=== PATIENT | female | born 1960 | race Caucasian/White ===

== ENCOUNTER 2017-01-02 19:05 | Observation (INO) | payer OTHER ==
[~2017-01-02] VITALS: Ht 177.8 cm; Wt 59.7 kg
[~2017-01-02 19:05] MED LIST: BETAM.05%T TOP; ENBR25IN3 SQ/IV; HYDR-3133 PO; LEVE500 PO; Z.0.WALKERFRONT
[2017-01-02 19:10] VITALS: BP 103/81; PULSE 115; RESP 18; TEMP 97.5; O2SAT 100
[2017-01-02 19:20] VITALS: BP 97/62; PULSE 73; RESP 18; O2SAT 99
--- NOTE | 2017-01-02 19:34 | PD ---
HPI Chief Complaint: Dizziness Time Seen by Provider: 19:26 Travel History International Travel<30 days: No Contact w/Intl Traveler<30days: No Traveled to known affect area: No History of Present Illness HPI 56-year-old female with history of RA, alcoholism, here for evaluation of possible dehydration. The patient states that for the last 2 days she has had little to eat or drink, and has had a few episodes of vomiting. She states that today she felt very weak and nearly passed out after becoming extremely dizzy. Currently the patient complains of weakness. No dizziness. She denies chest pain or dyspnea. No fevers or chills. No abdominal pain. States that she has not had an alcoholic beverage since yesterday, and usually drinks rum and Coke throughout the day. She denies illicit drug use. PFSH Past Medical History Arthritis: Yes (RHEUMATOID) Asthma: No Autoimmune Disease: Yes (RA) Blood Disorders: No Anxiety: No Depression: Yes Heart Rhythm Problems: No Cancer: No Cardiovascular Problems: Yes (htn not on meds) High Cholesterol: Yes Chemotherapy: No Chest Pain: No Congestive Heart Failure: No COPD: No Cerebrovascular Accident: No Diabetes: No Diminished Hearing: No Endocrine: No Gastrointestinal Disorders: No GERD: No Genitourinary: No Headaches: No Hiatal Hernia: No Hypertension: Yes Immune Disorder: No Implanted Vascular Access Dvce: No Kidney Stones: No Musculoskeletal: Yes (reumatoid arthritis) Neurologic: Yes Psychiatric: No Reproductive: No Respiratory: No Integumentary: Yes (CHRONIC PSORIASIS) Immunizations Current: Yes Migraines: No Radiation Therapy: No Renal Failure: No Seizures: No Sickle Cell Disease: No Sleep Apnea: No Thyroid Disease: No Ulcer: No ?: Not Menopausal: Yes Past Surgical History Abdominal Surgery: No AICD: No Arteriovenous Shunt: No Cardiac Surgery: No Genitourinary Surgery: No Gynecologic Surgery: No Insulin Pump: No Joint Replacement: No Neurologic Surgery: No Oral Surgery: No Pacemaker: No Thoracic Surgery: No Other Surgery: No Social History Alcohol Use: Yes (DAILY) Tobacco Use: Yes (1/2 PPD) Substance Use: No Allergies-Medications (Allergen,Severity, Reaction): Coded Allergies: No Known Allergies (Unverified , 01/02/17) Reported Meds & Prescriptions Reported Meds & Active Scripts Active Reported Folic Acid 400 Mcg Tab 400 Mcg PO DAILY Vitamin D (Cholecalciferol) 1,000 Unit Tab 1,000 Units PO DAILY Keppra (Levetiracetam) 500 Mg Tab 500 Mg PO BID Methotrexate 2.5 Mg Tab 5 Mg PO Q7D Review of Systems Except as stated in HPI: all other systems reviewed are Neg Physical Exam Narrative GENERAL: Well-developed, under nourished, underweight, awake, alert, no acute distress. SKIN: Focused skin assessment warm/dry. HEAD: Atraumatic. Normocephalic. EYES: Pupils equal and round. No scleral icterus. No injection or drainage. ENT: No nasal bleeding or discharge. Mucous membranes pink and dry. NECK: Trachea midline. No JVD. CARDIOVASCULAR: Tachycardic, regular. RESPIRATORY: No accessory muscle use. Clear to auscultation. Breath sounds equal bilaterally. GASTROINTESTINAL: Abdomen soft, non-tender, nondistended. MUSCULOSKELETAL: No obvious deformities. No clubbing. No cyanosis. No edema. NEUROLOGICAL: Awake and alert. No obvious cranial nerve deficits. Motor grossly within normal limits. Normal speech. PSYCHIATRIC: Appropriate mood and affect; insight and judgment normal. Data Data Last Documented VS Vital Signs Date Time Temp Pulse Resp B/P Pulse Ox O2 Delivery O2 Flow Rate FiO2 01/02/17 20:30 79 17 116/80 99 Room Air 01/02/17 19:10 97.5 Orders Complete Blood Count With Diff (01/02/17 19:31) Comprehensive Metabolic Panel (01/02/17 19:31) Lipase (01/02/17 19:31) Lactic Acid (01/02/17 19:31) Prothrombin Time / Inr (Pt) (01/02/17 19:31) Act Partial Throm Time (Ptt) (01/02/17 19:31) Urinalysis - C+S If Indicated (01/02/17 19:31) Iv Access Insert/Monitor (01/02/17 19:31) Ecg Monitoring (01/02/17 19:31) Oximetry (01/02/17 19:31) Sodium Chlor 0.9% 1000 Ml Inj (Ns 1000 M (01/02/17 19:31) Sodium Chloride 0.9% Flush (Ns Flush) (01/02/17 19:45) Electrocardiogram (01/02/17 19:31) Sodium Chlor 0.9% 1000 Ml Inj (Ns 1000 M (01/02/17 19:45) Alcohol (Ethanol) (01/02/17 19:31) Ckmb (Isoenzyme) Profile (01/02/17 19:31) Troponin I (01/02/17 19:31) Beta Hydroxybutyrate (Acetone) (01/02/17 19:40) Potassium Chlor 20 Meq Premix (Kcl 20 Me (01/02/17 21:30) Dext 5%-Nacl 0.45% 1000 Ml Inj (D5w-1/2 (01/02/17 21:45) Labs Laboratory Tests Test 01/02/17 19:40 White Blood Count 6.1 TH/MM3 Red Blood Count 3.54 MIL/MM3 Hemoglobin 12.2 GM/DL Hematocrit 37.2 % Mean Corpuscular Volume 105.3 FL Mean Corpuscular Hemoglobin 34.4 PG Mean Corpuscular Hemoglobin 32.7 % Concent Red Cell Distribution Width 15.0 % Platelet Count 164 TH/MM3 Mean Platelet Volume 9.4 FL Neutrophils (%) (Auto) 76.8 % Lymphocytes (%) (Auto) 15.8 % Monocytes (%) (Auto) 6.1 % Eosinophils (%) (Auto) 0.7 % Basophils (%) (Auto) 0.6 % Neutrophils # (Auto) 4.7 TH/MM3 Lymphocytes # (Auto) 1.0 TH/MM3 Monocytes # (Auto) 0.4 TH/MM3 Eosinophils # (Auto) 0.0 TH/MM3 Basophils # (Auto) 0.0 TH/MM3 CBC Comment AUTO DIFF Differential Comment AUTO DIFF CONFIRMED Platelet Estimate NORMAL Platelet Morphology Comment NORMAL Red Cell Morphology Comment NORMAL Prothrombin Time 10.9 SEC Prothromb Time International 1.0 RATIO Ratio Activated Partial 21.9 SEC Thromboplast Time Sodium Level 133 MEQ/L Potassium Level 2.7 MEQ/L Chloride Level 96 MEQ/L Carbon Dioxide Level 16.6 MEQ/L Anion Gap 20 MEQ/L Blood Urea Nitrogen 12 MG/DL Creatinine 1.20 MG/DL Estimat Glomerular Filtration 46 ML/MIN Rate Random Glucose 146 MG/DL Lactic Acid Level 3.2 mmol/L Calcium Level 9.1 MG/DL Total Bilirubin 2.1 MG/DL Aspartate Amino Transf 147 U/L (AST/SGOT) Alanine Aminotransferase 42 U/L (ALT/SGPT) Alkaline Phosphatase 140 U/L Total Creatine Kinase 27 U/L Troponin I LESS THAN 0.02 NG/ML Total Protein 8.9 GM/DL Albumin 3.4 GM/DL Lipase 208 U/L Ethyl Alcohol Level LESS THAN 3 MG/DL B-Hydroxybutyrate 4.34 MMOL/L [facility] Medical Decision Making Medical Screen Exam Complete: Yes Emergency Medical Condition: Yes Interpretation(s) EKG: Sinus, rate 93, normal axis, incomplete RBBB, nonspecific anterior/lateral ST/T changes, unchanged from prior. Differential Diagnosis Dehydration, metabolic abnormality, AKA, DKA, alcohol withdrawal. Narrative Course Initial vital signs show heart rate 1:15, blood pressure 103/81, pulse ox 100% on room air, oral temp 97.5F. CBC shows WBC 6.1, hemoglobin 12.2, hematocrit 37.2, platelets 164, MCV 105.3. CMP is remarkable for sodium 133, potassium 2.7, chloride 96, bicarbonate 16.6, anion gap 20, creatinine 1.2, GFR 46, T bili 2.1, AST 147, ALT 42, alkaline phosphatase 140. Lipase is 208. Lactic acid is 3.2. Beta hydroxybutyrate is 4.34 Potassium replaced peripherally. Heart rate improved to the 80s after 2 L of normal saline IV. Patient has an anion gap metabolic acidosis. This is likely alcoholic ketoacidosis. She does have a slight lactic acidosis. After 2 L of normal saline were given, the patient was started on D5 1/2 NS at 100 cc per hour. She will be admitted for further treatment and evaluation. Case discussed with [facility] hospitalist Dr Loving who will admit the patient to his service. Diagnosis Primary Impression: Metabolic acidosis Additional Impressions: Alcoholic ketoacidosis Dehydration Hypokalemia Admitting Information Admitting Physician Requests: Observation Richard Peterson MD January 02, 2017 19:34
[2017-01-02] MEDS ORDERED: SODIUM CHLORIDE 0.9% FLUSH 10 ML FLUSH IV FLUSH PRN ×2 (19:45→22:15)
[2017-01-02] MEDS ORDERED: SODIUM CHLOR 0.9% 1000 ML INJ 1,000 ML IV ONE (19:45)
[2017-01-02] MEDS ORDERED: FOLI400T PO (19:47)
[2017-01-02] MEDS ORDERED: LEVE500 PO (19:47)
[2017-01-02] MEDS ORDERED: VITA100064 PO (19:47)
[2017-01-02] MEDS ORDERED: METH2.5T PO (19:47)
[2017-01-02 19:55] LABS: AUTOMATED NEUTROPHIL # 4.7 TH/MM3 (1.8-7.7); BASOPHIL % 0.6 % (0.0-2.0); EOSINOPHIL % 0.7 % (0.0-4.0); HEMATOCRIT 37.2 % (35.0-46.0); LYMPH % 15.8 % (9.0-44.0); MEAN CELL VOLUME 105.3 FL (80.0-100.0); MEAN CORPUSCULAR HEMOGLOBIN 34.4 PG (27.0-34.0); MEAN CORPUSCULAR HGB CONC 32.7 % (32.0-36.0); MONO % 6.1 % (0.0-8.0); NEUT % 76.8 % (16.0-70.0); PLATELET COUNT 164 TH/MM3 (150-450); RED BLOOD COUNT 3.54 MIL/MM3 (4.00-5.30); WHITE BLOOD COUNT 6.1 TH/MM3 (4.0-11.0)
[2017-01-02 19:56] LABS: HEMO FLAGS AUTO DIFF
[2017-01-02] MEDS: SODIUM CHLOR 0.9% 1000 ML INJ 1,000 ML IV SCH ×2 (19:59→20:03)
[2017-01-02 20:11] LABS: APTT (PATIENT) 21.9 SEC (24.3-30.1); PROTHROMBIN TIME - PATIENT 10.9 SEC (9.8-11.6)
[2017-01-02 20:30] VITALS: BP 116/80; PULSE 79; RESP 17; O2SAT 99
[2017-01-02 21:03] LABS: ALKALINE PHOSPHATASE 140 U/L (45-117); ALT (GPT) 42 U/L (10-53); ANION GAP 20 MEQ/L (5-15); AST (GOT) 147 U/L (15-37); BICARBONATE 16.6 MEQ/L (21.0-32.0); BLOOD UREA NITROGEN 12 MG/DL (7-18); CHLORIDE 96 MEQ/L (98-107); GLOMERULAR FILTRATION RATE 46 ML/MIN (>89); SODIUM (NA) 133 MEQ/L (136-145); TOTAL BILIRUBIN ADULT 2.1 MG/DL (0.2-1.0)
[2017-01-02 21:04] LABS: CREATINE KINASE 27 U/L (26-192)
[2017-01-02 21:06] LABS: PLATELET ESTIMATE SMEAR NORMAL (NORMAL); PLATELET MORPHOLOGY NORMAL (NORMAL); SCAN/DIFF AUTO DIFF CONFIRMED
[2017-01-02 21:07] LABS: POTASSIUM 2.7 MEQ/L (3.5-5.1)
[2017-01-02 21:28] LABS: BETA-HYDROXYBUTYRATE 4.34 MMOL/L (0.00-0.39)
[2017-01-02 21:30] VITALS: BP 110/70; PULSE 80; RESP 17; O2SAT 97
[2017-01-02] MEDS ORDERED: DEXT 5%-NACL 0.45% 1000 ML INJ 1,000 ML IV SCH (21:45)
[2017-01-02] MEDS: POTASSIUM CHLOR 20 MEQ PREMIX 100 ML IV SCH (21:55)
--- NOTE | 2017-01-02 22:11 | HHI.HP ---
HPI Service [facility] Hospitalists Primary Care Physician Jens Vides MD Admission Diagnosis metabolic acidosis, alcoholic ketoacidosis, hypokalemia, dehydration Chief Complaint: dizziness weak not eating or drinking 2 days Travel History International Travel<30 Days: No Contact w/Intl Traveler <30 Da: No Traveled to Known Affected Are: No History of Present Illness 56 y/o white female with hx drinking rum and coke daily who has history of seizure disorder on keppra . Patient was doing well ate on monday donut which upset her stomach and took tums with no improvement and had nausea and vomit and did not eat or drink anything since monday ,also was feeling lightheaded and came [facility] was given IV fluid which did help her blood pressure which initially was low ,Lab work showed hypokalemia and acidosis and will be admitted for hydration and recheck labs in am. Patient has an anion gap metabolic acidosis. This is likely alcoholic ketoacidosis. She does have a slight lactic acidosis. After 2 L of normal saline were given, the patient was started on D5 1/2 NS at 100 cc per hour. She will be admitted for further treatment and evaluation. Review of Systems Constitutional: COMPLAINS OF: Dizziness, Change in appetite Gastrointestinal: COMPLAINS OF: Nausea, Vomiting Past Family Social History Past Medical History rheumatoid arthritis on methotrexate q week,seizure disorder Past Surgical History none Reported Medications keppra 500 bid,vit d,folic acid methotrexate Allergies: Coded Allergies: No Known Allergies (Unverified , 01/02/17) Social History drinks daily none since monday smokes has cut down to 1/2 ppd Physical Exam Vital Signs Vital Signs Date Time Temp Pulse Resp B/P Pulse Ox O2 Delivery O2 Flow Rate FiO2 01/02/17 20:30 79 17 116/80 99 Room Air 01/02/17 19:20 73 18 97/62 99 Room Air 01/02/17 19:10 97.5 115 18 103/81 100 Physical Exam GENERAL: This is a well-nourished, well-developed patient, in no apparent distress. SKIN: No rashes, ecchymoses or lesions. Cool and dry. HEAD: Atraumatic. Normocephalic. No temporal or scalp tenderness. EYES: Pupils equal round and reactive. Extraocular motions intact. No scleral icterus. No injection or drainage. ENT: Nose without bleeding, purulent drainage or septal hematoma. Throat without erythema, tonsillar hypertrophy or exudate. Uvula midline. Airway patent. NECK: Trachea midline. No JVD or lymphadenopathy. Supple, nontender, no meningeal signs. CARDIOVASCULAR: Regular rate and rhythm without murmurs, gallops, or rubs. RESPIRATORY: Clear to auscultation. Breath sounds equal bilaterally. No wheezes , rales, or rhonchi. GASTROINTESTINAL: Abdomen soft, non-tender, nondistended. No hepato-splenomegaly , or palpable masses. No guarding. MUSCULOSKELETAL: Extremities without clubbing, cyanosis, or edema. No joint tenderness, effusion, or edema noted. No calf tenderness. Negative Homans sign bilaterally. NEUROLOGICAL: Awake and alert. Cranial nerves II through XII intact. Motor and sensory grossly within normal limits. Five out of 5 muscle strength in all muscle groups. Normal speech. Laboratory Laboratory Tests Test 01/02/17 19:40 White Blood Count 6.1 Red Blood Count 3.54 Hemoglobin 12.2 Hematocrit 37.2 Mean Corpuscular Volume 105.3 Mean Corpuscular Hemoglobin 34.4 Mean Corpuscular Hemoglobin 32.7 Concent Red Cell Distribution Width 15.0 Platelet Count 164 Mean Platelet Volume 9.4 Neutrophils (%) (Auto) 76.8 Lymphocytes (%) (Auto) 15.8 Monocytes (%) (Auto) 6.1 Eosinophils (%) (Auto) 0.7 Basophils (%) (Auto) 0.6 Neutrophils # (Auto) 4.7 Lymphocytes # (Auto) 1.0 Monocytes # (Auto) 0.4 Eosinophils # (Auto) 0.0 Basophils # (Auto) 0.0 CBC Comment AUTO DIFF Differential Comment AUTO DIFF CONFIRMED Platelet Estimate NORMAL Platelet Morphology Comment NORMAL Red Cell Morphology Comment NORMAL Prothrombin Time 10.9 Prothromb Time International 1.0 Ratio Activated Partial 21.9 Thromboplast Time Sodium Level 133 Potassium Level 2.7 Chloride Level 96 Carbon Dioxide Level 16.6 Anion Gap 20 Blood Urea Nitrogen 12 Creatinine 1.20 Estimat Glomerular Filtration 46 Rate Random Glucose 146 Lactic Acid Level 3.2 Calcium Level 9.1 Total Bilirubin 2.1 Aspartate Amino Transf 147 (AST/SGOT) Alanine Aminotransferase 42 (ALT/SGPT) Alkaline Phosphatase 140 Total Creatine Kinase 27 Troponin I LESS THAN 0.02 Total Protein 8.9 Albumin 3.4 Lipase 208 Ethyl Alcohol Level LESS THAN 3 B-Hydroxybutyrate 4.34 Result Diagram: 01/02/17193901/02/171939 Course in er started on IV fluid Assessment and Plan Problem List: (1) Metabolic acidosis Status: Acute Plan: will continue IV fluid recheck labs (2) Alcoholic ketoacidosis Status: Acute Plan: as above no signs of withdrawal (3) Hypokalemia Status: Acute Plan: will give potassium and follow up labs (4) Dehydration Status: Acute Plan: IV fluid Assessment and Plan further plan pending repeat labs,patient lft was a little high will recheck and get abdominal ultrasound Code Status full Discussed Condition With patient Froilan Avery MD January 02, 2017 22:10
[2017-01-02] MEDS ORDERED: PANTOPRAZOLE SODIUM 40 MG VIAL IV PUSH ONE (22:15)
[2017-01-02] MEDS ORDERED: NALOXONE HCL 0.4 MG/ML AMP IV PRN (22:15)
[2017-01-02] MEDS ORDERED: ONDANSETRON HCL 4 MG/2 ML VIAL IVP PRN (22:15)
[2017-01-02 22:30] VITALS: BP 130/90; PULSE 93; RESP 16; O2SAT 97
[2017-01-02 23:30] VITALS: BP 118/83; PULSE 82; RESP 18; O2SAT 97
[2017-01-02 23:56] LABS: BLOOD, URINE LARGE (NEG); GLUCOSE,URINE NEG (NEG); KETONE, URINE NEG (NEG); NITRITE,URINE NEG (NEG)
[2017-01-03] VITALS: BP 121/85; PULSE 78; RESP 18; TEMP 97.1; O2SAT 100
[2017-01-03 00:11] LABS: BACTERIA, URINE MANY /hpf; SQUAMOUS EPITHELIAL CELL URINE 0-5 /hpf (0-5); URINE COLOR AMBER (YELLW/STRAW); WBC, URINE INNUM /hpf (0-5)
[2017-01-03 00:12] LABS: COMMENT (UR) CULTURE INDICATED; CULTURE IF INDICATED CULTURE INDICATED
[2017-01-03 00:45] VITALS: PULSE 89
[2017-01-03] MEDS: POTASSIUM CHLOR 20 MEQ PREMIX 100 ML IV SCH (02:24)
[2017-01-03 04:00] VITALS: BP 123/84; PULSE 76; RESP 18; TEMP 98; O2SAT 100
[2017-01-03] MEDS: SODIUM CHLOR 0.45% 1000 ML INJ 1,000 ML IV SCH ×2 (04:34→08:55)
[2017-01-03 05:49] LABS: AUTOMATED NEUTROPHIL # 2.8 TH/MM3 (1.8-7.7); BASOPHIL % 0.4 % (0.0-2.0); EOSINOPHIL % 0.7 % (0.0-4.0); HEMATOCRIT 28.7 % (35.0-46.0); HEMO FLAGS DIFF FINAL; LYMPH % 23.9 % (9.0-44.0); LYMPHOCYTE # 1.1 TH/MM3 (1.0-4.8); MEAN CELL VOLUME 105.3 FL (80.0-100.0); MEAN CORPUSCULAR HEMOGLOBIN 35.9 PG (27.0-34.0); MEAN CORPUSCULAR HGB CONC 34.1 % (32.0-36.0); MONO % 11.5 % (0.0-8.0); NEUT % 63.5 % (16.0-70.0); PLATELET COUNT 113 TH/MM3 (150-450); RED BLOOD COUNT 2.73 MIL/MM3 (4.00-5.30); RED CELL DISTRIBUTION WIDTH 15.1 % (11.6-17.2); WHITE BLOOD COUNT 4.4 TH/MM3 (4.0-11.0)
[2017-01-03 06:11] LABS: ALKALINE PHOSPHATASE 97 U/L (45-117); ALT (GPT) 27 U/L (10-53); ANION GAP 14 MEQ/L (5-15); AST (GOT) 78 U/L (15-37); BETA-HYDROXYBUTYRATE 1.82 MMOL/L (0.00-0.39); BICARBONATE 20.1 MEQ/L (21.0-32.0); BLOOD UREA NITROGEN 9 MG/DL (7-18); CHLORIDE 103 MEQ/L (98-107); GLOMERULAR FILTRATION RATE 74 ML/MIN (>89); POTASSIUM 3.6 MEQ/L (3.5-5.1); SODIUM (NA) 137 MEQ/L (136-145); TOTAL BILIRUBIN ADULT 1.5 MG/DL (0.2-1.0)
[2017-01-03 08:31] VITALS: BP 112/78; PULSE 71; RESP 18; TEMP 97.5; O2SAT 100
[2017-01-03] MEDS ORDERED: levETIRAcetam 500 MG TAB PO SCH (09:00)
[2017-01-03] MEDS ORDERED: CHOLECALCIFEROL (VIT D3) 1000 UNIT TAB PO SCH (09:00)
[2017-01-03] MEDS ORDERED: SODIUM CHLORIDE 0.9% FLUSH 10 ML FLUSH IV FLUSH SCH (09:00)
[2017-01-03] MEDS ORDERED: FOLIC ACID 1 MG TAB PO SCH ×2 (09:00)
--- NOTE | 2017-01-03 09:14 | RADHPO ---
EXAM DATE/TIME: 01/03/2017 08:15 [place] COMPARISON: No previous studies available for comparison. INDICATIONS : Increased lab values. MEDICAL HISTORY : Hypertension. Rheumatoid arthritis. Hypercholesterolemia. ETOH. SURGICAL HISTORY : None. ENCOUNTER: Initial ACUITY: 1 day PAIN SCORE: 4/10 LOCATION: Bilateral upper quadrant MEASUREMENTS: LIVER: 12.9 cm length COMMON DUCT: 4 mm RIGHT KIDNEY: 11.2 x 5.2 x 5.6 cm SPLEEN: 8.0 cm length FINDINGS: LIVER: Normal echotexture without focal lesion or ductal dilatation. COMMON DUCT: No intraluminal mass or stone visualized. GALLBLADDER: Contains no stones, demonstrates no wall thickening or pericholecystic fluid. PANCREAS: The visualized portions are within normal limits. RIGHT KIDNEY: No hydronephrosis, stone or mass. SPLEEN: No focal lesion. CONCLUSION: Normal examination. Carlos A Lyons MD on January 03, 2017 at 9:08 Board Certified Radiologist. This report was verified electronically.
[2017-01-03] MEDS ORDERED: THIAMINE HCL 100 MG TAB PO ONE (10:30)
[2017-01-03] MEDS ORDERED: POTASSIUM CHLORIDE 8 MEQ CONTROLLED RELEASE TAB PO ONE (10:30)
--- NOTE | 2017-01-03 10:31 | HHI.PR ---
Subjective Remarks Patient feeling better labs are normalizing except has anemia and did have nausea and vomit and does have alcohol use will ask GI to see ,also [place] service counselor regarding alcohol Objective Vitals GENERAL: SKIN: Warm and dry. HEAD: Atraumatic. Normocephalic. EYES: Pupils equal and round. No scleral icterus. No injection or drainage. ENT: No nasal bleeding or discharge. Mucous membranes pink and moist. NECK: Trachea midline. No JVD. CARDIOVASCULAR: Regular rate and rhythm. RESPIRATORY: No accessory muscle use. Clear to auscultation. Breath sounds equal bilaterally. GASTROINTESTINAL: Abdomen soft, non-tender, nondistended. Hepatic and splenic margins not palpable. MUSCULOSKELETAL: Extremities without clubbing, cyanosis, or edema. No obvious deformities. NEUROLOGICAL: Awake and alert. No obvious cranial nerve deficits. Motor grossly within normal limits. Five out of 5 muscle strength in the arms and legs. Normal speech. PSYCHIATRIC: Appropriate mood and affect; insight and judgment normal. Vital Signs Date Time Temp Pulse Resp B/P Pulse Ox O2 Delivery O2 Flow Rate FiO2 01/03/17 08:31 97.5 71 18 112/78 100 01/03/17 04:00 98.0 76 18 123/84 100 01/03/17 00:45 89 01/03/17 00:00 97.1 78 18 121/85 100 01/02/17 23:30 82 18 118/83 97 Room Air 01/02/17 22:30 93 16 130/90 97 Room Air 01/02/17 21:30 80 17 110/70 97 Room Air 01/02/17 20:30 79 17 116/80 99 Room Air 01/02/17 19:20 73 18 97/62 99 Room Air 01/02/17 19:10 97.5 115 18 103/81 100 01/02/17 01/02/17 01/03/17 15:00 23:00 07:00 Intake Total 2000 ml 896 ml Output Total 100 ml Balance 2000 ml 796 ml IV Total 2000 ml 896 ml Output Urine Total 100 ml # Voids 1 Result Diagram: 01/03/17 0512 01/03/17 0512 Imaging Last 24 hours Impressions Liver Ultrasound 01/03/17 0000 Signed Impressions: Service Date/Time: Tuesday, January 03, 2017 08:15 - CONCLUSION: Normal examination. Carlos A Lyons MD A/P Problem List: (1) Metabolic acidosis Status: Acute Plan: resolving (2) Alcoholic ketoacidosis Status: Acute Plan: resolving no signs of withdrawal (3) Hypokalemia Status: Acute Plan: low normal start po potassium (4) Dehydration Status: Acute Plan: continue IV fluid (5) Anemia Status: Acute Plan: low hgb will consult gi obtain iron folate b12 levels start thiamine Assessment and Plan await GI if they can see today and arrange follow up may discharge later today. Discharge Planning as above Froilan Avery MD January 03, 2017 10:31
[2017-01-03 12:32] VITALS: BP 110/79; PULSE 75; RESP 18; TEMP 98.1; O2SAT 98
[2017-01-03 13:54] LABS: TRANSFERRIN IRON PROFILE 158 MG/DL (200-360)
--- NOTE | 2017-01-03 14:41 | PD.CONS ---
HPI History of Present Illness This is a 56 year old female with hx of daily alcohol intake ( rum), [facility], who is here after having a fall and was admitted for dehydration . Patient was in her usual state of health till Monday when she felt really sick and had nausea and vomiting for a couple of days with some heart burn for which she took Tums without improvement. GI have been consulted for anemia, nausea and vomiting. Initial labs revealed hypokalemia and acidosis. H&H dropped from 12.2/37.2 on January 02 to 9.8/28.7 today. Patient states she takes lots of Advil for RA. She denies any signs of bleeding or change in bowels. She had colonoscopy 10 yrs ago. She had EGD/PEG in 2013 and that was normal. Currently patient doing good, denies nausea, vomiting, hematemesis, abd pain, melena or hematochezia. Labs showed high elevated LFTs and bili, but these improving. Today, bili is 1.5, AST 78. lipase 208. PFSH Past Medical History RA Seizures Past Surgical History shoulder surg EGD/colonoscopy PEG tube then removal Coded Allergies: No Known Allergies (Unverified , 01/02/17) Medications Current Medications Medications (Trade) Dose Ordered Sig/Shazia Route Start Time Stop Time Status Last Admin (Vitamin D3) 1,000 units DAILY PO 01/03/17 09:00 01/03/17 08:52 (Keppra) 500 mg BID PO 01/03/17 09:00 01/03/17 08:52 (Folate) 1 mg DAILY PO 01/03/17 09:00 01/03/17 08:52 (NS Flush) 2 ml UNSCH PRN IV FLUSH 01/02/17 22:15 (NS Flush) 2 ml BID IV FLUSH 01/03/17 09:00 (Zofran Inj) 4 mg Q6H PRN IVP 01/02/17 22:15 Naloxone HCl 0.4 mg 0.4 mg UNSCH PRN IV 01/02/17 22:15 (1/2 NS 1000 ml Inj) 1,000 ml @ 100 mls/hr Q10H IV 01/02/17 22:15 01/03/17 08:55 (KCl) 8 meq DAILY PO 01/04/17 09:00 (Vitamin B1) 100 mg DAILY PO 01/04/17 09:00 Family History Her father had cancer with mets, not sure what type Social History drinks daily none since Monday smokes has cut down to 1/2 ppd No illicit drug use Review of Systems Constitutional: COMPLAINS OF: Fatigue, Dizziness Endocrine: DENIES: Polyuria Eyes: DENIES: Double Vision Ears, nose, mouth, throat: DENIES: Hoarseness Respiratory: DENIES: Shortness of breath Cardiovascular: DENIES: Lower Extremity Edema Gastrointestinal: COMPLAINS OF: Nausea, Vomiting, Heartburn, DENIES: Abdominal pain, Black stools, Bloody stools, Constipation, Diarrhea, Difficulty Swallowing, Anorexia, Odynophagia, Swelling of Abdomen, Hematemesis Genitourinary: DENIES: Hematuria Musculoskeletal: COMPLAINS OF: Back pain Integumentary: DENIES: Jaundice Hematologic/lymphatic: DENIES: Bruising Immunologic/allergic: DENIES: Eczema Neurologic: DENIES: Abnormal gait Psychiatric: DENIES: Anxiety GI Exam Vitals I&O Vital Signs Date Time Temp Pulse Resp B/P Pulse Ox O2 Delivery O2 Flow Rate FiO2 01/03/17 12:32 98.1 75 18 110/79 98 01/03/17 08:31 97.5 71 18 112/78 100 01/03/17 04:00 98.0 76 18 123/84 100 01/03/17 00:45 89 01/03/17 00:00 97.1 78 18 121/85 100 01/02/17 23:30 82 18 118/83 97 Room Air 01/02/17 22:30 93 16 130/90 97 Room Air 01/02/17 21:30 80 17 110/70 97 Room Air 01/02/17 20:30 79 17 116/80 99 Room Air 01/02/17 19:20 73 18 97/62 99 Room Air 01/02/17 19:10 97.5 115 18 103/81 100 I/O 01/02/17 01/02/17 01/02/17 01/03/17 01/03/17 01/03/17 07:00 15:00 23:00 07:00 15:00 23:00 Intake Total 2000 ml 896 ml 240 ml Output Total 100 ml 200 ml Balance 2000 ml 796 ml 40 ml Intake Oral 240 ml IV Total 2000 ml 896 ml Output Urine Total 100 ml 200 ml # Voids 1 Imaging Last Impressions Liver Ultrasound 01/03/17 0000 Signed Impressions: Service Date/Time: Tuesday, January 03, 2017 08:15 - CONCLUSION: Normal examination. Carlos A Lyons MD Laboratory Test 01/02/17 01/02/17 01/03/17 19:40 23:45 05:12 Prothrombin Time 10.9 SEC Prothromb Time International 1.0 RATIO Ratio Activated Partial 21.9 SEC Thromboplast Time Sodium Level 133 MEQ/L 137 MEQ/L Potassium Level 2.7 MEQ/L 3.6 MEQ/L Chloride Level 96 MEQ/L 103 MEQ/L Carbon Dioxide Level 16.6 MEQ/L 20.1 MEQ/L Anion Gap 20 MEQ/L 14 MEQ/L Blood Urea Nitrogen 12 MG/DL 9 MG/DL Creatinine 1.20 MG/DL 0.80 MG/DL Estimat Glomerular Filtration 46 ML/MIN 74 ML/MIN Rate Random Glucose 146 MG/DL 106 MG/DL Lactic Acid Level 3.2 mmol/L 1.2 mmol/L Calcium Level 9.1 MG/DL 7.8 MG/DL Total Bilirubin 2.1 MG/DL 1.5 MG/DL Aspartate Amino Transf 147 U/L 78 U/L (AST/SGOT) Alanine Aminotransferase 42 U/L 27 U/L (ALT/SGPT) Alkaline Phosphatase 140 U/L 97 U/L Total Creatine Kinase 27 U/L Troponin I LESS THAN 0.02 NG/ML Total Protein 8.9 GM/DL 6.7 GM/DL Albumin 3.4 GM/DL 2.5 GM/DL Lipase 208 U/L Ethyl Alcohol Level LESS THAN 3 MG/DL B-Hydroxybutyrate 4.34 MMOL/L 1.82 MMOL/L White Blood Count 6.1 TH/MM3 4.4 TH/MM3 Red Blood Count 3.54 MIL/MM3 2.73 MIL/MM3 Hemoglobin 12.2 GM/DL 9.8 GM/DL Hematocrit 37.2 % 28.7 % Mean Corpuscular Volume 105.3 FL 105.3 FL Mean Corpuscular Hemoglobin 34.4 PG 35.9 PG Mean Corpuscular Hemoglobin 32.7 % 34.1 % Concent Red Cell Distribution Width 15.0 % 15.1 % Platelet Count 164 TH/MM3 113 TH/MM3 Mean Platelet Volume 9.4 FL 9.0 FL Neutrophils (%) (Auto) 76.8 % 63.5 % Lymphocytes (%) (Auto) 15.8 % 23.9 % Monocytes (%) (Auto) 6.1 % 11.5 % Eosinophils (%) (Auto) 0.7 % 0.7 % Basophils (%) (Auto) 0.6 % 0.4 % Neutrophils # (Auto) 4.7 TH/MM3 2.8 TH/MM3 Lymphocytes # (Auto) 1.0 TH/MM3 1.1 TH/MM3 Monocytes # (Auto) 0.4 TH/MM3 0.5 TH/MM3 Eosinophils # (Auto) 0.0 TH/MM3 0.0 TH/MM3 Basophils # (Auto) 0.0 TH/MM3 0.0 TH/MM3 CBC Comment AUTO DIFF DIFF FINAL Differential Comment AUTO DIFF CONFIRMED Platelet Estimate NORMAL Platelet Morphology Comment NORMAL Red Cell Morphology Comment NORMAL Urine Collection Type Urine Color BISHOP Urine Turbidity MARKED Urine pH 6.0 Urine Specific [place] 1.012 Urine Protein 30 mg/dL Urine Glucose (UA) NEG mg/dL Urine Ketones NEG mg/dL Urine Occult Blood LARGE Urine Nitrite NEG Urine Bilirubin NEG Urine Leukocyte Esterase LARGE Urine WBC INNUM /hpf Urine WBC Clumps MANY Urine Squamous Epithelial 0-5 /hpf Cells Urine Amorphous Sediment FEW Urine Bacteria MANY /hpf Microscopic Urinalysis Comment CULTURE INDICATED Iron Level 98 MCG/DL Total Iron Binding Capacity 221 MCG/DL Percent Iron Saturation 44.3 % Vitamin B12 Level 417 PG/ML Folate 4.4 NG/ML Date/Time Procedure Status Source Growth 01/02/17 23:45 Urine Culture Received Urine Clean Catch Pending Physical Examination HEENT: normocephalic; atraumatic; no jaundice. NECK: Neck is supple, no JVD, no lymphadenopathy. CHEST: Chest is clear to auscultation and percussion. CARDIAC: Regular rate and rhythm with no murmur gallop or rubs. ABDOMEN: Soft, nondistended, nontender; no hepatosplenomegaly; bowel sounds are present in all four quadrants. EXTREMITIES: No clubbing, cyanosis, or edema. SKIN: Normal; no rash; no jaundice. [employer]: No focal deficits; alert and oriented times three. Assessment and Plan Plan - Anemia- Macrocytic. No bleeding, iron 98, TIBC 221, % saturation 44.3.She had colonoscopy 10 yrs ago. She had EGD/PEG in 2013 and that was normal. She takes lots of NSAIDs for RA. H&H dropped from 12.2/37.2 on January 02 to 9.8/ 28.7 today. This could be due to Iv dilution or macrocytic anemia - Nausea/vomiting- lipase normal, elevation in liver enzymes most likely secondary to alcohol intake, US normal, No more emesis, this could be PUD due to alcohol and NSAIDs - elevated LFTs and bili, but these improving. Today, bili is 1.5, AST 78. Likely to daily alcohol intake. US normal - Hypokalemia and acidosis. IMproved - seizure disorder on Keppra, - RA on Methotrexate - Heavy alcohol intake- Advised to cessation Plan: - SOFIE - I have discussed with patient the need for EGD/colonoscopy However, she is refusing, stating she will do this as an OP Her daughter is coming into town for 4 days and would like to go home Patient is stable, no active bleeding, no more N/V - Discharge on Protonix - F/u with GI in one week - EGD/colonoscopy as an OP - Avoid NSAIDs - Alcohol cessation - Patient seen and examined by Dr. Forbes and myself and this note is written on his behalf. Galdino Chapa January 03, 2017 14:41
--- NOTE | 2017-01-03 15:17 | EKG ---
Date Performed: 01/02/2017 Time Performed: 19:41:36 PTAGE: 56 years EKG: Sinus rhythm Incomplete RBBB Ant/septal and lateral ST-T changes are nonspecific Borderline ECG Compared to prior tracing no significant change PREVIOUS TRACING : 08/30/2015 08.45 DOCTOR: Dodie Yousif Interpretating Date/Time 01/03/2017 15:16:31
[2017-01-03] MEDS ORDERED: KLOR8TAB PO (16:01)
[2017-01-03] MEDS ORDERED: PANT20 PO (16:01)
[2017-01-03] MEDS ORDERED: VITA100T2 PO (16:01)
--- NOTE | 2017-01-03 16:08 | HHI.DS ---
Discharge Summary Admission Date January 02, 2017 at 21:53 Admitting Diagnosis metabolic acidosis, alcoholic ketoacidosis, hypokalemia, dehydration (1) Metabolic acidosis Diagnosis: Principal (2) Alcoholic ketoacidosis Diagnosis: Principal (3) Hypokalemia Diagnosis: Principal (4) Dehydration Diagnosis: Principal (5) Anemia Diagnosis: Secondary Consultants GI Brief History 56 y/o white female with hx drinking rum and coke daily who has history of seizure disorder on ra . Patient was doing well ate on monday donut which upset her stomach and took tums with no improvement and had nausea and vomit and did not eat or drink anything since monday ,also was feeling lightheaded and came to [facility] ,[facility] was given IV fluid which did help her blood pressure which initially was low ,Lab work showed hypokalemia and acidosis and will be admitted for hydration and recheck labs in am. Patient has an anion gap metabolic acidosis. This is likely alcoholic ketoacidosis. She does have a slight lactic acidosis. After 2 L of normal saline were given, the patient was started on D5 1/2 NS at 100 cc per hour. She will be admitted for further treatment and evaluation. CBC/BMP: 01/03/17 0512 01/03/17 0512 Significant Findings Laboratory Tests Test 01/02/17 01/02/17 01/03/17 19:40 23:45 05:12 Activated Partial 21.9 SEC Thromboplast Time (24.3-30.1) Sodium Level 133 MEQ/L (136-145) Potassium Level 2.7 MEQ/L (3.5-5.1) Chloride Level 96 MEQ/L (98-107) Carbon Dioxide Level 16.6 MEQ/L 20.1 MEQ/L (21.0-32.0) (21.0-32.0) Anion Gap 20 MEQ/L (5-15) Creatinine 1.20 MG/DL (0.50-1.00) Estimat Glomerular Filtration 46 ML/MIN (>89) 74 ML/MIN (>89) Rate Random Glucose 146 MG/DL (74-106) Lactic Acid Level 3.2 mmol/L (0.4-2.0) Total Bilirubin 2.1 MG/DL 1.5 MG/DL (0.2-1.0) (0.2-1.0) Aspartate Amino Transf 147 U/L (15-37) 78 U/L (15-37) (AST/SGOT) Alkaline Phosphatase 140 U/L (45-117) Troponin I LESS THAN 0.02 NG/ML (0.02-0.05) Total Protein 8.9 GM/DL (6.4-8.2) B-Hydroxybutyrate 4.34 MMOL/L 1.82 MMOL/L (0.00-0.39) (0.00-0.39) Red Blood Count 3.54 MIL/MM3 2.73 MIL/MM3 (4.00-5.30) (4.00-5.30) Mean Corpuscular Volume 105.3 FL 105.3 FL (80.0-100.0) (80.0-100.0) Mean Corpuscular Hemoglobin 34.4 PG 35.9 PG (27.0-34.0) (27.0-34.0) Neutrophils (%) (Auto) 76.8 % (16.0-70.0) Urine Color BISHOP (YELLW/STRAW) Urine Turbidity MARKED (CLEAR) Urine Protein 30 mg/dL (NEG-TRACE) Urine Occult Blood LARGE (NEG) Urine Leukocyte Esterase LARGE (NEG) Urine WBC INNUM /hpf (0-5) Urine WBC Clumps MANY (NONE) Urine Bacteria MANY /hpf (NONE) Hemoglobin 9.8 GM/DL (11.6-15.3) Hematocrit 28.7 % (35.0-46.0) Platelet Count 113 TH/MM3 (150-450) Monocytes (%) (Auto) 11.5 % (0.0-8.0) Calcium Level 7.8 MG/DL (8.5-10.1) Total Iron Binding Capacity 221 MCG/DL (250-450) Albumin 2.5 GM/DL (3.4-5.0) Imaging Last 24 hours Impressions Liver Ultrasound 01/03/17 0000 Signed Impressions: Service Date/Time: Tuesday, January 03, 2017 08:15 - CONCLUSION: Normal examination. Carlos A Lyons MD PE at Discharge GENERAL: SKIN: Warm and dry. HEAD: Atraumatic. Normocephalic. EYES: Pupils equal and round. No scleral icterus. No injection or drainage. ENT: No nasal bleeding or discharge. Mucous membranes pink and moist. NECK: Trachea midline. No JVD. CARDIOVASCULAR: Regular rate and rhythm. RESPIRATORY: No accessory muscle use. Clear to auscultation. Breath sounds equal bilaterally. GASTROINTESTINAL: Abdomen soft, non-tender, nondistended. Hepatic and splenic margins not palpable. MUSCULOSKELETAL: Extremities without clubbing, cyanosis, or edema. No obvious deformities. NEUROLOGICAL: Awake and alert. No obvious cranial nerve deficits. Motor grossly within normal limits. Five out of 5 muscle strength in the arms and legs. Normal speech. PSYCHIATRIC: Appropriate mood and affect; insight and judgment normal. Hospital Course Patient did well responded to IV fluid with improvement in labs resolution of acidosis and normal potassium had normal liver ultrasound ..Patient was seen by GI and did not want in patient procedure will see GI as outpatient and will be on protonix already called in to [facility] pharmacy along with thiamine and potassium q day. Patient has refused any help regarding her ETOH usage ,I will let patient 's PCP know. Patient discharged in good condition. Pt Condition on Discharge: Good Discharge Disposition: Discharge Home Discharge Instructions DIET: Follow Instructions for: As Tolerated, No Restrictions Activities you can perform: Regular-No Restrictions New Medications: Pantoprazole (Protonix) 20 Mg Tab 20 MG PO DAILY one a day Reflux #30 Ref 0 TAB NS Potassium Chloride ER (Klor-Con 8) 8 Meq Tab 8 MEQ PO DAILY hypokalemia #30 TAB Thiamine (Vitamin B-1) 100 Mg Tab 100 MG PO DAILY anemia #30 TAB Continued Medications: Cholecalciferol (Vitamin D) 1,000 Unit Tab 1000 UNITS PO DAILY Nutritional Supplement #1 Ref 0 BOTTLE Folic Acid (Folic Acid) 400 Mcg Tab 400 MCG PO DAILY Nutritional Supplement Ref 0 TAB Levetiracetam (Keppra) 500 Mg Tab 500 MG PO BID Control Seizures #60 Ref 0 TAB Methotrexate (Methotrexate) 2.5 Mg Tab 5 MG PO Q7D Ref 0 TAB Additional Information follow up GI and PCP Froilan Avery MD January 03, 2017 16:08
[2017-01-04] MEDS ORDERED: THIAMINE HCL 100 MG TAB PO SCH (09:00)
[2017-01-04] MEDS ORDERED: POTASSIUM CHLORIDE 8 MEQ CONTROLLED RELEASE TAB PO SCH (09:00)
== END 2017-01-03 18:37 | disposition home or self-care (01) ==
LOC: PHED 19:05 → PHEDA 21:53 → PH3A 01-03 00:07
PROVIDERS: ADMIT Internal Medicine; ATTEND Internal Medicine
DX: E87.2 Acidosis (principal); G40.909 Epilepsy, unspecified, not intractable, without status epilepticus; M06.9 Rheumatoid arthritis, unspecified; F17.200 Nicotine dependence, unspecified, uncomplicated; E87.6 Hypokalemia; E86.0 Dehydration; I10 Essential (primary) hypertension; L40.9 Psoriasis, unspecified; D64.9 Anemia, unspecified; R11.2 Nausea with vomiting, unspecified; F10.20 Alcohol dependence, uncomplicated; Z79.899 Other long term (current) drug therapy; I45.10 Unspecified right bundle-branch block; R94.31 Abnormal electrocardiogram [ECG] [EKG]
CPT/HCPCS: 76705; 80053; 80307; 81001; 82010; 82550; 82607; 82746; 83540; 83550; 83605; 83690; 84484; 85025; 85610; 85730; 87077; 87086; 87186; 93005; 96361; 96365; 96366; 96375; 99285; C9113; G0378; J3480; J7030

== ENCOUNTER 2017-03-24 10:44 | Inpatient (IN) | payer OTHER ==
[2017-03-24] VITALS (11 sets, daily range): BP systolic 91–134; BP diastolic 58–87; PULSE 70–104; RESP 15–20; TEMP 98.3–98.8; O2SAT 97–100
[~2017-03-24] VITALS: Ht 177.8 cm; Wt 64.0 kg
[~2017-03-24 10:44] MED LIST changes: -BETAM.05%T TOP; -ENBR25IN3 SQ/IV; +FOLI400T PO; -HYDR-3133 PO; +KLOR8TAB PO; +METH2.5T PO; +PANT20 PO; +VITA100064 PO; +VITA100T2 PO; -Z.0.WALKERFRONT
[2017-03-24] MEDS ORDERED: LORazepam 2 MG/ML VIAL ONE (11:14)
[2017-03-24] MEDS ORDERED: LORazepam 2 MG/ML VIAL IV PUSH ONE (11:15)
[2017-03-24] MEDS ORDERED: SODIUM CHLOR 0.9% 1000 ML INJ 1,000 ML IV ONE ×2 (11:16→13:30)
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
[2017-03-24] MEDS ORDERED: SODIUM CHLORIDE 0.9% FLUSH 10 ML FLUSH IVF PRN (11:30)
[2017-03-24] MEDS ORDERED: SODIUM CHLORID 0.9% 500 ML INJ 500 ML IV ONE (11:30)
[2017-03-24] MEDS ORDERED: levETIRAcetam 1000 MG INJ 100 ML IV ONE (11:30)
[2017-03-24 11:39] LABS: AUTOMATED NEUTROPHIL # 3.3 TH/MM3 (1.8-7.7); BASOPHIL # 0.1 TH/MM3 (0-0.2); BASOPHIL % 2.2 % (0.0-2.0); EOSINOPHIL # 0.1 TH/MM3 (0-0.4); EOSINOPHIL % 1.2 % (0.0-4.0); HEMATOCRIT 37.1 % (35.0-46.0); HEMO FLAGS DIFF FINAL; LYMPH % 32.8 % (9.0-44.0); LYMPHOCYTE # 1.9 TH/MM3 (1.0-4.8); MEAN CELL VOLUME 112.1 FL (80.0-100.0); MEAN CORPUSCULAR HEMOGLOBIN 37.2 PG (27.0-34.0); MEAN CORPUSCULAR HGB CONC 33.2 % (32.0-36.0); MONO % 8.3 % (0.0-8.0); NEUT % 55.5 % (16.0-70.0); PLATELET COUNT 205 TH/MM3 (150-450); RED BLOOD COUNT 3.31 MIL/MM3 (4.00-5.30); RED CELL DISTRIBUTION WIDTH 15.5 % (11.6-17.2); WHITE BLOOD COUNT 5.9 TH/MM3 (4.0-11.0)
[2017-03-24 11:50] LABS: APTT (PATIENT) 23.7 SEC (24.3-30.1); PROTHROMBIN TIME - PATIENT 11.4 SEC (9.8-11.6)
--- NOTE | 2017-03-24 12:09 | RADRPT ---
EXAM DATE/TIME: 03/24/2017 11:27 [facility] COMPARISON: CHEST SINGLE AP, August 30, 2015, 9:21. INDICATIONS : Shortness of breath. MEDICAL HISTORY : Seizures. Hypertension. Rheumatoid arthritis. Hypercholesterolemia. SURGICAL HISTORY : None. ENCOUNTER: Initial ACUITY: 1 day PAIN SCORE: Non-responsive. LOCATION: Bilateral chest FINDINGS: A single view of the chest demonstrates the lungs to be symmetrically aerated without evidence of mas s, infiltrate or effusion. The cardiomediastinal contours are unremarkable. Post surgical changes fo llowing ORIF are noted in the right humerus. CONCLUSION: No acute disease. Severino Oakes MD on March 24, 2017 at 12:07 Board Certified Radiologist. This report was verified electronically.
[2017-03-24 12:16] LABS: CREATINE KINASE 58 U/L (26-192)
[2017-03-24 12:18] LABS: ALKALINE PHOSPHATASE 113 U/L (45-117); ALT (GPT) 33 U/L (10-53); ANION GAP 18 MEQ/L (5-15); AST (GOT) 91 U/L (15-37); BICARBONATE 14.1 MEQ/L (21.0-32.0); BLOOD UREA NITROGEN 6 MG/DL (7-18); CHLORIDE 106 MEQ/L (98-107); GLOMERULAR FILTRATION RATE 94 ML/MIN (>89); MAGNESIUM 1.3 MG/DL (1.5-2.5); SODIUM (NA) 138 MEQ/L (136-145); TOTAL BILIRUBIN ADULT 0.5 MG/DL (0.2-1.0)
[2017-03-24 12:23] LABS: POTASSIUM 2.7 MEQ/L (3.5-5.1)
--- NOTE | 2017-03-24 12:25 | RADRPT ---
EXAM DATE/TIME: 03/24/2017 11:51 [facility] COMPARISON: CT BRAIN W/O CONTRAST, August 30, 2015, 8:55. INDICATIONS : Seizure RADIATION DOSE: 33.12 CTDIvol (mGy) MEDICAL HISTORY : Hypertension. SURGICAL HISTORY : None. ENCOUNTER: Initial ACUITY: 1 day PAIN SCALE: Non-responsive LOCATION: cranial TECHNIQUE: Multiple contiguous axial images were obtained of the head. Using automated exposure control and adj ustment of the mA and/or kV according to patient size, radiation dose was kept as low as reasonably a chievable to obtain optimal diagnostic quality images. DICOM format image data is available electro nically for review and comparison. FINDINGS: There is encephalomalacia in the right frontal region which is stable. Left hemisphere is intact and unremarkable. Posterior fossa and brainstem structures are stable and benign. There is no evidence of intracranial hemorrhage or mass. There is nothing to suggest acute infarction. The extracranial stru ctures are benign and intact. CONCLUSION: Stable brain appearance. No acute findings. Carlos A Lyons MD on March 24, 2017 at 12:19 Board Certified Radiologist. This report was verified electronically.
[2017-03-24] MEDS ORDERED: POTASSIUM CHLOR 20 MEQ PREMIX 100 ML IV STA (12:27)
[2017-03-24] MEDS ORDERED: POTASSIUM CHLORIDE 10 MEQ CONTROLLED RELEASE TAB PO ONE (12:30)
[2017-03-24] MEDS ORDERED: MAGNESIUM SULFATE 1 GM PREMIX 100 ML IV ONE (12:45)
--- NOTE | 2017-03-24 13:10 | PD ---
Physical Exam Date Seen by Provider: Mar 24, 2017 Time Seen by Provider: 12:00 Narrative I, Dr. Hurley, have reviewed the advance practice practitioner's documentation and am in agreement, met with the patient face to face, made the diagnosis, and the medical decision making was done by me. *My assessment and Findings: Patient seen and evaluated with PA, please see PA note for further details. History of seizures, alcohol use, has not been drinking as much recently, had seizure, second seizure was generalized tonic- clonic witnessed in the ER by nurse practitioner, and was given Ativan. She was also given Keppra which she is supposed to be on. She was initially post ictal and after an hour observation, she is awake and alert and able to give history. Vital signs are stable in the ER. However, review of lab work shows significant hypokalemia and hypomagnesemia. Both were replaced in the ER. Her lactate was elevated as well although a repeat lactate was done since the lactate was post ictal which could effect numbers. At this point, patient will need further care and considering electrolyte abnormalities, multiple seizures, and possible DTs, plan would be to admit the patient to ICU under [facility]. Case was discussed with nurse practitioner's for [facility] for admission. Aggregate critical care time was 25 minutes. Time to perform other separately billable procedures was not included in the critical care time. My time did not include minutes spent treating any other patients simultaneously or on activities that did not directly contribute to the patient's treatment. The services I provided to this patient were to treat and/or prevent clinically significant deterioration that could result in: Status epilepticus, dysrhythmias , I provided critical care services requiring my management, as noted below: Chart data review, documentation time, medication orders and management, vital sign assessments/reviewing monitor data, ordering and reviewing lab tests, ordering and interpreting/reviewing x-rays and diagnostic studies, care of the patient and discussion of the patient with the admitting physicians. Data Data Last Documented VS Vital Signs Date Time Temp Pulse Resp B/P Pulse Ox O2 Delivery O2 Flow Rate FiO2 03/24/17 12:06 82 15 117/76 100 Non-Rebreather 10 03/24/17 10:45 98.3 Orders Lorazepam Inj (Ativan Inj) (03/24/17 11:15) Lorazepam Inj (Ativan Inj) (03/24/17 11:14) Complete Blood Count With Diff (03/24/17 11:16) Alcohol (Ethanol) (03/24/17 11:16) Drug Screen, Random Urine (03/24/17 11:16) Electrocardiogram (03/24/17 ) Blood Glucose (03/24/17 11:16) Ecg Monitoring (03/24/17 11:16) Iv Access Insert/Monitor (03/24/17 11:16) Oximetry (03/24/17 11:16) Comprehensive Metabolic Panel (03/24/17 11:16) Sodium Chlor 0.9% 1000 Ml Inj (Ns 1000 M (03/24/17 11:16) Sodium Chloride 0.9% Flush (Ns Flush) (03/24/17 11:30) Urinalysis - C+S If Indicated (03/24/17 11:16) Magnesium (Mg) (03/24/17 11:16) Ammonia (03/24/17 11:16) Ct Brain W/O Iv Contrast(Rout) (03/24/17 ) Chest, Single Ap (03/24/17 ) Ckmb (Isoenzyme) Profile (03/24/17 11:18) Prothrombin Time / Inr (Pt) (03/24/17 11:18) Act Partial Throm Time (Ptt) (03/24/17 11:18) Troponin I (03/24/17 11:18) Sodium Chlorid 0.9% 500 Ml Inj (Ns 500 M (03/24/17 11:30) Lactic Acid Sepsis Protocol (03/24/17 11:19) Blood Culture (03/24/17 11:19) Levetiracetam 1000 Mg Inj (Keppra 1000 M (03/24/17 11:30) Ammonia (03/24/17 12:22) Lactic Acid (03/24/17 12:22) Potassium Chloride (Kcl) (03/24/17 12:30) Potassium Chlor 20 Meq Premix (Kcl 20 Me (03/24/17 12:27) Magnesium (Mg) (03/24/17 12:32) Magnesium Sulfate 1 Gm Premix (Magnesium (03/24/17 12:45) Labs Laboratory Tests Test 03/24/17 11:20 White Blood Count 5.9 TH/MM3 Red Blood Count 3.31 MIL/MM3 Hemoglobin 12.3 GM/DL Hematocrit 37.1 % Mean Corpuscular Volume 112.1 FL Mean Corpuscular Hemoglobin 37.2 PG Mean Corpuscular Hemoglobin 33.2 % Concent Red Cell Distribution Width 15.5 % Platelet Count 205 TH/MM3 Mean Platelet Volume 9.1 FL Neutrophils (%) (Auto) 55.5 % Lymphocytes (%) (Auto) 32.8 % Monocytes (%) (Auto) 8.3 % Eosinophils (%) (Auto) 1.2 % Basophils (%) (Auto) 2.2 % Neutrophils # (Auto) 3.3 TH/MM3 Lymphocytes # (Auto) 1.9 TH/MM3 Monocytes # (Auto) 0.5 TH/MM3 Eosinophils # (Auto) 0.1 TH/MM3 Basophils # (Auto) 0.1 TH/MM3 CBC Comment DIFF FINAL Differential Comment Prothrombin Time 11.4 SEC Prothromb Time International 1.0 RATIO Ratio Activated Partial 23.7 SEC Thromboplast Time Sodium Level 138 MEQ/L Potassium Level 2.7 MEQ/L Chloride Level 106 MEQ/L Carbon Dioxide Level 14.1 MEQ/L Anion Gap 18 MEQ/L Blood Urea Nitrogen 6 MG/DL Creatinine 0.65 MG/DL Estimat Glomerular Filtration 94 ML/MIN Rate Random Glucose 120 MG/DL Lactic Acid Level 8.3 mmol/L Calcium Level 7.8 MG/DL Magnesium Level 1.3 MG/DL Total Bilirubin 0.5 MG/DL Aspartate Amino Transf 91 U/L (AST/SGOT) Alanine Aminotransferase 33 U/L (ALT/SGPT) Alkaline Phosphatase 113 U/L Ammonia 190 MCMOL/L Total Creatine Kinase 58 U/L Troponin I LESS THAN 0.02 NG/ML Total Protein 7.1 GM/DL Albumin 2.6 GM/DL Ethyl Alcohol Level 22 MG/DL [facility] Medical Record Reviewed: Yes Supervised Visit with CELIA: Yes Diagnosis Primary Impression: Hypomagnesemia Additional Impressions: Hypokalemia Seizure Admitting Information Admitting Physician Requests: Admit Condition: Stable Hamilton Hurley MD Mar 24, 2017 13:10
[2017-03-24 13:30] LABS: LACTIC ACID GHOST NOT REPORTABLE
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
[2017-03-24] MEDS ORDERED: LORazepam 2 MG/ML VIAL IV PUSH PRN ×5 (15:00→18:00)
[2017-03-24] MEDS ORDERED: chlordiazePOXIDE 25 MG CAP PO PRN (15:00)
[2017-03-24] MEDS ORDERED: ACETAMINOPHEN 325 MG TAB PO PRN (15:30)
[2017-03-24] MEDS ORDERED: ONDANSETRON HCL 4 MG/2 ML VIAL IV PRN (15:30)
[2017-03-24] MEDS: FOLIC ACID 1 MG TAB PO SCH (16:40)
[2017-03-24] MEDS: THIAMINE HCL 100 MG TAB PO SCH (16:41)
[2017-03-24] MEDS: NS + KCL 20 MEQ INJ 1,000 ML IV SCH (17:46)
[2017-03-24] MEDS ORDERED: FLUMAZENIL 0.5 MG/5 ML VIAL IV PUSH PRN (18:00)
[2017-03-24] MEDS ORDERED: LORazepam 1 MG TAB PO PRN (18:00)
[2017-03-24] MEDS ORDERED: LORazepam 2 MG TAB PO PRN (18:00)
[2017-03-24 19:10] LABS: BACTERIA, URINE OCC /hpf; BLOOD, URINE SMALL (NEG); GLUCOSE,URINE NEG (NEG); HYALINE CAST, URINE 5 /lpf (RARE); KETONE, URINE NEG (NEG); NITRITE,URINE NEG (NEG); PH, URINE 6.5 (5.0-8.5); URINE COLOR YELLOW (YELLW/STRAW)
[2017-03-24 19:13] LABS: COMMENT (UR) CATH-CULTURE IND; CULTURE IF INDICATED CATH CULTURE IND
[2017-03-24 19:18] LABS: AMPHETAMINE, URINE NEG (NEG); BARBITURATES, URINE NEG (NEG); COCAINE, URINE NEG (NEG)
[2017-03-24] MEDS: levETIRAcetam 500 MG TAB PO SCH (20:43)
[2017-03-25] VITALS (10 sets, daily range): BP systolic 87–115; BP diastolic 58–81; PULSE 58–75; RESP 15–17; TEMP 97.1–98.5; O2SAT 98–100
[2017-03-25] MEDS: NS + KCL 20 MEQ INJ 1,000 ML IV SCH (03:00)
[2017-03-25 06:16] LABS: AUTOMATED NEUTROPHIL # 2.6 TH/MM3 (1.8-7.7); BASOPHIL # 0.1 TH/MM3 (0-0.2); BASOPHIL % 1.2 % (0.0-2.0); EOSINOPHIL % 0.7 % (0.0-4.0); HEMATOCRIT 34.3 % (35.0-46.0); HEMO FLAGS DIFF FINAL; LYMPH % 31.6 % (9.0-44.0); LYMPHOCYTE # 1.6 TH/MM3 (1.0-4.8); MEAN CELL VOLUME 112.9 FL (80.0-100.0); MEAN CORPUSCULAR HEMOGLOBIN 37.3 PG (27.0-34.0); MONO % 16.3 % (0.0-8.0); NEUT % 50.2 % (16.0-70.0); PLATELET COUNT 183 TH/MM3 (150-450); RED BLOOD COUNT 3.04 MIL/MM3 (4.00-5.30); RED CELL DISTRIBUTION WIDTH 14.9 % (11.6-17.2); WHITE BLOOD COUNT 5.1 TH/MM3 (4.0-11.0)
[2017-03-25 06:36] LABS: MAGNESIUM 1.6 MG/DL (1.5-2.5); POTASSIUM 4.2 MEQ/L (3.5-5.1)
[2017-03-25] MEDS: FOLIC ACID 1 MG TAB PO SCH (09:04)
[2017-03-25] MEDS: MULTIVITAMIN TAB PO SCH (09:04)
[2017-03-25] MEDS: levETIRAcetam 500 MG TAB PO SCH ×2 (09:04→20:59)
[2017-03-25] MEDS: THIAMINE HCL 100 MG TAB PO SCH (09:04)
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
[2017-03-25] MEDS ORDERED: SODIUM CHLOR 0.9% 1000 ML INJ 1,000 ML IV SCH (11:00)
--- NOTE | 2017-03-25 17:16 | EKG ---
Date Performed: 03/24/2017 Time Performed: 11:35:31 PTAGE: 56 years EKG: SINUS TACHYCARDIA INCOMPLETE RIGHT BUNDLE BRANCH BLOCK NONSPECIFIC ST & T-WAVE ABNORMALITY ABNORMAL RHYTHM ECG Compared to prior tracing no significant change PREVIOUS TRACING : 01/02/2017 19.41 DOCTOR: Sherman Lombardi Interpretating Date/Time 03/25/2017 17:14:14
[2017-03-26 00:30] VITALS: BP 120/80; PULSE 61; RESP 17; TEMP 97.9; O2SAT 99
[2017-03-26 04:00] VITALS: BP 126/83; PULSE 61; RESP 17; TEMP 98.6; O2SAT 98
[2017-03-26 08:00] VITALS: BP 125/77; PULSE 60; RESP 17; TEMP 98.2; O2SAT 99
[2017-03-26] MEDS: FOLIC ACID 1 MG TAB PO SCH (09:01)
[2017-03-26] MEDS: THIAMINE HCL 100 MG TAB PO SCH (09:01)
[2017-03-26] MEDS: MULTIVITAMIN TAB PO SCH (09:01)
[2017-03-26] MEDS: levETIRAcetam 500 MG TAB PO SCH (09:01)
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
[2017-03-26] MEDS ORDERED: LEVE500 PO (09:28)
[2017-03-26] MEDS ORDERED: LEVA250T14 PO (09:28)
--- NOTE | 2017-03-26 09:28 | HHI.DCPOC ---
Discharge Care Plan Diagnosis: (1) Seizure (2) UTI (urinary tract infection) Goals to Promote Your Health * To prevent worsening of your condition and complications * To maintain your health at the optimal level Directions to Meet Your Goals Take your medications as prescribed Follow your dietary instruction Follow activity as directed Keep your appointments as scheduled Take your immunizations and boosters as scheduled If your symptoms worsen call your PCP, if no PCP go to Urgent Care Center or Emergency Room Smoking is Dangerous to Your Health. Avoid second hand smoke Call the 24-hour hour crisis hotline for domestic abuse at Zac Mcarthur MD Mar 26, 2017 09:28
[2017-03-26] MEDS ORDERED: LEVOFLOXACIN 250 MG TAB PO ONE (09:45)
== END 2017-03-26 12:13 | disposition home or self-care (01) | DRG 101 ==
LOC: NEPC 10:44 → NEDA 13:11 → N03B 18:37 → N05A 03-25 13:46
PROVIDERS: ADMIT Hospitalist; ATTEND Hospitalist
DX: G40.909 Epilepsy, unspecified, not intractable, without status epilepticus (principal); E87.2 Acidosis; F10.239 Alcohol dependence with withdrawal, unspecified; N39.0 Urinary tract infection, site not specified; E87.6 Hypokalemia; E83.42 Hypomagnesemia; Y90.1 Blood alcohol level of 20-39 mg/100 ml; R51 Headache; G62.9 Polyneuropathy, unspecified; M06.9 Rheumatoid arthritis, unspecified; L40.9 Psoriasis, unspecified; I10 Essential (primary) hypertension; E78.00 Pure hypercholesterolemia, unspecified; Z86.73 Personal history of transient ischemic attack (TIA), and cerebral infarction without residual deficits; F17.200 Nicotine dependence, unspecified, uncomplicated; Z91.19 Patient's noncompliance with other medical treatment and regimen
CPT/HCPCS: 70450; 71010; 80048; 80053; 80177; 80307; 81001; 82140; 82550; 83605; 83735; 84132; 84484; 85025; 85610; 85730; 87040; 87077; 87086; 87186; 93005; 96365; 96375; J1953; J2060; J3475; J3480; J7030; J7040

== ENCOUNTER 2017-04-19 21:42 | Emergency (ER) | payer OTHER ==
[~2017-04-19] VITALS: Ht 177.8 cm; Wt 61.0 kg
[~2017-04-19 21:42] MED LIST changes: -KLOR8TAB PO; +LEVA250T14 PO; -METH2.5T PO; -PANT20 PO; -VITA100T2 PO
[2017-04-19 22:01] VITALS: BP 138/101; PULSE 112; RESP 16; TEMP 98.3; O2SAT 99
[2017-04-19] MEDS ORDERED: ADVITAB3 PO (22:21)
[2017-04-19 22:33] VITALS: BP 151/106; PULSE 98; RESP 17; O2SAT 99
--- NOTE | 2017-04-19 22:39 | PD ---
HPI Chief Complaint: Fall Time Seen by Provider: 22:05 Travel History International Travel<30 days: No Contact w/Intl Traveler<30days: No Traveled to known affect area: No History of Present Illness HPI Patient is a 56-year-old female presents emergency Department intoxicated for evaluation of head injury. She arrives with her clinically sober . According the patient she is complaining of headache for the past day after falling a week ago. She states she also felt day. Patient states she's seen a neurologist for frequent falls in the past she also has a history of seizure disorders on Keppra. Review of her chart says she's been admitted to the emergency department multiple times in the past for status epilepticus alcohol withdrawal seizures and alcohol intoxication. Patient states her headache is fairly mild currently she does not take any blood thinners. She states she had a trip and fall earlier today and landed on her left elbow. Denies any chest pain shortness breath lost consciousness. She denies any abdominal pain or other extremity pain. States her left elbow doesn't hurt her. She was talking to her daughter earlier today and stated that she was told that if her head was hurting she come to the emergency department. PFSH Past Medical History Arthritis: Yes (Rheumatoid Arthritis) Asthma: No Autoimmune Disease: Yes (RA) Blood Disorders: No Anxiety: No Depression: Yes Heart Rhythm Problems: No Cancer: No Cardiovascular Problems: Yes (htn not on meds) High Cholesterol: Yes Chemotherapy: No Chest Pain: No Congestive Heart Failure: No COPD: No Cerebrovascular Accident: No Diabetes: No Diminished Hearing: No Endocrine: No Gastrointestinal Disorders: Yes GERD: No Genitourinary: Yes (RETENTION.) Headaches: Yes Hiatal Hernia: No Hypertension: Yes Immune Disorder: No Implanted Vascular Access Dvce: No Kidney Stones: No Musculoskeletal: Yes (reumatoid arthritis) Neurologic: Yes Psychiatric: Yes Reproductive: No Respiratory: Yes Integumentary: Yes (CHRONIC PSORIASIS) Immunizations Current: Yes Migraines: No Radiation Therapy: No Renal Failure: No Seizures: Yes (stopped keppra, methotraxate w/o MD order) Sickle Cell Disease: No Sleep Apnea: No Thyroid Disease: No Ulcer: No Menopausal: Yes Past Surgical History Abdominal Surgery: No AICD: No Arteriovenous Shunt: No Cardiac Surgery: No Ear Surgery: No Endocrine Surgery: No Eye Surgery: No Genitourinary Surgery: No Gynecologic Surgery: No Insulin Pump: No Joint Replacement: No Neurologic Surgery: No Oral Surgery: No Pacemaker: No Thoracic Surgery: No Other Surgery: Yes Social History Alcohol Use: Yes (DAILY) Tobacco Use: Yes (1/2 PPD) Substance Use: Yes Allergies-Medications (Allergen,Severity, Reaction): Coded Allergies: No Known Allergies (Unverified , 04/19/17) Reported Meds & Prescriptions Reported Meds & Active Scripts Active Keppra (Levetiracetam) 500 Mg Tab 500 Mg PO Q12HR Reported Advil Allergy Sinus (Boecqsjytlncajng-Hyrgzaouulydzxq-Ynadamajo) 2-30-200 Mg Tab 1 Tab PO Q4H PRN Folic Acid 400 Mcg Tab 400 Mcg PO DAILY Review of Systems Except as stated in HPI: all other systems reviewed are Neg Physical Exam Narrative GENERAL: Well-developed well-nourished, intoxicated but in no distress. SKIN: Small contusion on the left elbow, no contusions or abrasions seen in her person otherwise. HEAD: Atraumatic. Normocephalic. EYES: Pupils equal and round. No scleral icterus. No injection or drainage. ENT: No nasal bleeding or discharge. Mucous membranes pink and moist. NECK: Trachea midline. No JVD. CARDIOVASCULAR: Regular rate and rhythm. No murmur appreciated. RESPIRATORY: No accessory muscle use. Clear to auscultation. Breath sounds equal bilaterally. GASTROINTESTINAL: Abdomen soft, non-tender, nondistended. Hepatic and splenic margins not palpable. MUSCULOSKELETAL: No obvious deformities. No clubbing. No cyanosis. No edema. No midline CT or L-spine tenderness. No tenderness of the left elbow, NEUROLOGICAL: Awake and alert. No obvious cranial nerve deficits. Motor grossly within normal limits. Normal speech. Cranial nerves II through XII are grossly intact and nonfocal, 5 out of 5 strength all 4 extremities. PSYCHIATRIC: Appears fairly intoxicated, calm and cooperative however. Data Data Last Documented VS Vital Signs Date Time Temp Pulse Resp B/P (MAP) Pulse Ox O2 Delivery O2 Flow Rate FiO2 04/20/17 00:20 04/19/17 23:26 110 18 97 Room Air 04/19/17 22:[address] Brain W/O Iv Contrast(Rout) (04/19/17 ) Ct Cerv Spine W/O Contrast (04/19/17 ) Elbow, Complete (4 Vws) (04/19/17 ) MDM Medical Decision Making Medical Screen Exam Complete: Yes Emergency Medical Condition: Yes Differential Diagnosis frequent falls, alcohol intoxication, alcohol dependence. Head injury, neck injury. Narrative Course Patient roomed emerged permit, CT head and C-spine negative. She stable for discharge, her dropped her off and then left the hospital, did not have a chance to speak with him directly. He did appear clinically sober as walking to the halls: Collected and nursing stated that he said he was sober. Nursing reached him and he is on his way to take his home. Discussed alcohol cessation with her. At 08 28 the patient's has arrived and took her home. Diagnosis Primary Impression: Fall Additional Impressions: Elbow pain Headache Alcoholism Disposition: DISCHARGE HOME Condition: Stable Travis Rocha MD Apr 19, 2017 22:39
--- NOTE | 2017-04-19 23:06 | RADRPT ---
EXAM DATE/TIME: 04/19/2017 22:39 [facility] COMPARISON: No previous studies available for comparison. INDICATIONS : Fall onto left elbow one week ago MEDICAL HISTORY : None. SURGICAL HISTORY : None. ENCOUNTER: Initial ACUITY: 1 day PAIN SCORE: 2/10 LOCATION: Left posterior elbow FINDINGS: Multiple view examination of the left elbow demonstrates no soft tissue swelling, joint effusion, or fracture. The osseous structures are in normal alignment. Bony mineralization is normal. CONCLUSION: 1. No acute fracture or dislocation. Oz Valencia MD on April 19, 2017 at 23:03 Board Certified Radiologist. This report was verified electronically.
--- NOTE | 2017-04-19 23:08 | RADRPT ---
EXAM DATE/TIME: 04/19/2017 22:50 [facility] COMPARISON: CT BRAIN W/O CONTRAST, March 24, 2017, 11:51. INDICATIONS : Fell and hit head. RADIATION DOSE: 60.00 CTDIvol (mGy) MEDICAL HISTORY : Hypertension. SURGICAL HISTORY : Craniotomy. ENCOUNTER: Initial ACUITY: 1 day PAIN SCALE: 5/10 LOCATION: cranial TECHNIQUE: Multiple contiguous axial images were obtained of the head. Using automated exposure control and adj ustment of the mA and/or kV according to patient size, radiation dose was kept as low as reasonably a chievable to obtain optimal diagnostic quality images. DICOM format image data is available electro nically for review and comparison. FINDINGS: CEREBRUM: Stable and subtle malacia defect in the right frontal mid convexities. Mild diffuse renal atrophy. Th e ventricles are normal for degree of atrophy with ex vacuo dilatation of the right ventricle. No ev idence of midline shift, mass lesion, hemorrhage or acute infarction. No extra-axial fluid collectio ns are seen. POSTERIOR FOSSA: The cerebellum and brainstem are intact. The 4th ventricle is midline. The cerebellopontine angle i s unremarkable. EXTRACRANIAL: The visualized portion of the orbits is intact. SKULL: The calvaria is intact. No evidence of skull fracture. CONCLUSION: 1. Stable right frontal mid convexity encephalomalacia. 2. No acute intracranial abnormality or significant interval change. Oz Valencia MD on April 19, 2017 at 23:04 Board Certified Radiologist. This report was verified electronically.
[2017-04-19 23:26] VITALS: BP 169/104; PULSE 110; RESP 18; O2SAT 97
--- NOTE | 2017-04-19 23:36 | RADRPT ---
EXAM DATE/TIME: 04/19/2017 22:50 [facility] COMPARISON: CT CERVICAL SPINE W/O CONTRAST, August 30, 2015, 11:10. INDICATIONS : Fell and hit head. RADIATION DOSE: 26.60 CTDIvol (mGy) MEDICAL HISTORY : Hypertension. SURGICAL HISTORY : Craniotomy. ENCOUNTER: Initial ACUITY: 1 day PAIN SCALE: 5/10 LOCATION: neck TECHNIQUE: Volumetric scanning of the cervical spine was performed. Multiplanar reconstructions in the sagittal, coronal and oblique axial planes were performed. Using automated exposure control and adjustment o f the mA and/or kV according to patient size, radiation dose was kept as low as reasonably achievable to obtain optimal diagnostic quality images. DICOM format image data is available electronically f or review and comparison. FINDINGS: Vertebral body heights are maintained. Osseous structures are intact without evidence for acute bony fracture. Dens is intact. Mild grade 1, approximately 3 mm, anterolisthesis of C3 on C4 which appears more pronounced than prior exam. There is near reversal of the normal cervical lordosis with promine nt progressive degenerative spondylosis from C3-C6. This includes severe disc space narrowing, endpla te sclerosis and osteophyte formation and has progressed particularly at C5-6 and C3-4. There is a no rmal C1-2 relationship. There is prominent multilevel facet arthropathy most prominently at the C3-5 on the left. Posterior osteophytes at C4-5 and C5-6 results in at least moderate central canal stenos is. There is no significant prevertebral soft tissue hematoma. No significant cervical adenopathy or gross mass. The thyroid appears unremarkable. Bulky calcified plaque is seen in the right carotid bul b. Visualized lung apices are clear without pneumothorax. CONCLUSION: 1. Progressive prominent multilevel degenerative spondylosis of the cervical spine most prominently a t C3-6 with at least moderate spinal canal stenosis at C4-5 and C5-6. Prominent left facet arthropath y at C3-4 and C4-5. 2. Progressive mild grade 1, approximately 3 mm, anterolisthesis of C3 on C4 in comparison to prior e xamination. This is likely due to progressive degenerative change at this level. Consider flexion-ext ension views if there is concern regarding ligamentous instability. 3. Otherwise, no acute fracture or subluxation. 4. Bulky calcified plaque in the right carotid bulb. Oz Valencia MD on April 19, 2017 at 23:23 Board Certified Radiologist. This report was verified electronically.
== END 2017-04-20 00:28 | disposition home or self-care (01) ==
LOC: PHED 21:42
DX: R51 Headache (principal); M25.522 Pain in left elbow; F10.20 Alcohol dependence, uncomplicated; W19.XXXA Unspecified fall, initial encounter
CPT/HCPCS: 70450; 72125; 73080